=== PATIENT | male | born 1980 | race Caucasian/White ===

== ENCOUNTER → 2019-11-28 | Outpatient (CLI) | payer OTHER, BC ==
--- NOTE | 2019-11-28 14:34 | Diagnostic Imaging Report ---
PROCEDURE: CT chest without contrast. TECHNIQUE: Multiple contiguous axial images were obtained through the chest without the use of intravenous contrast. Auto Exposure Controls were utilized during the CT exam to meet ALARA standards for radiation dose reduction. INDICATION: Right chest wall mass, under the right breast x2 months. CORRELATION STUDY: None. FINDINGS: Visualized portions of the thyroid gland are unremarkable. No suggestion for pathologically enlarged mediastinal and/or hilar lymph nodes. Some increased density in the retrosternal fat may be reflective of some residual thymic tissue. Heart size is within normal limits. Mildly prominent pericardial fat. Thoracic aortic contour is unremarkable. Gastroesophageal junction is unremarkable. Lung gomes are clear. No infiltrate or effusion. Deep to the area marked on the chest is the costochondral margin of the fifth rib. It is noted that the cartilaginous portion is perhaps slightly thicker compared to its contralateral side. Slightly more prominent anterior positioning is also suggested. No ike destructive change or erosion. No fracture. There is no soft tissue mass. Visualized portion of the upper abdomen demonstrates distention of the stomach with retained gastric contents, likely recent meal ingestion. IMPRESSION: 1. Area marked of the medial right lower chest corresponds to the right third costochondral margin. This does appear to be perhaps very slightly thicker and slightly more anterior in position compared to its contralateral side. It could simply be normal variation. Component of underlying costochondritis could also account for this. No definitive concerning mass lesion is suggested. Dictated by: Dictated on workstation # [id number]
== END ==
LOC: RAD 12:46
PROVIDERS: ATTEND Nurse Practitioner Family
DX: R22.2 Localized swelling, mass and lump, trunk (principal)
CPT/HCPCS: 71250